=== PATIENT | male | born 1960 | race Caucasian/White ===

== ENCOUNTER 2019-04-17 21:18 | Emergency (ER) | payer MEDICAID ==
[~2019-04-17] VITALS: Ht 175.3 cm; Wt 81.8 kg
[2019-04-17 22:07] LABS: BASOPHILS % (AUTO) 0.3 % (0-1); EOSINOPHILS % (AUTO) 0.5 % (0-6); HEMATOCRIT 33.5 % (42.0-52.0); HEMOGLOBIN 11.5 g/dl (14.0-17.9); LYMPHOCYTES # (AUTO) 2.2 X10'3 (1.1-4.8); LYMPHOCYTES % (AUTO) 22.5 % (21-51); MEAN CORPUSCULAR HEMOGLOBIN 30.3 PG (27.0-31.0); MEAN CORPUSCULAR HGB CONC 34.4 g/dL (33.0-36.5); MEAN CORPUSCULAR VOLUME 87.9 FL (78-98); MEAN PLATELET VOLUME 9.1 FL (7.4-10.4); MONOCYTES # (AUTO) 1.2 X10'3 (0-0.9); NEUTROPHILS # (AUTO) 6.1 X10'3 (1.8-7.7); NEUTROPHILS % (AUTO) 63.7 % (42-75); PLATELET COUNT 186 X10'3 (140-440); RED BLOOD COUNT 3.81 X10'6 (4.70-6.10); RED CELL DISTRIBUTION WIDTH 14.5 % (11.5-14.5); WHITE BLOOD COUNT 9.6 X10'3 (4.5-11.0)
[2019-04-17 22:16] LABS: ALANINE AMINOTRANSFERASE 57 U/L (12-78); ALBUMIN 3.1 G/DL (3.4-5.0); ALBUMIN/GLOBULIN RATIO 0.8 (1.1-1.5); ALKALINE PHOSPHATASE 81 IU/L (46-116); ANION GAP 6 (8-16); ASPARTATE AMINO TRANSFERASE 52 U/L (10-37); BILIRUBIN,TOTAL 0.4 MG/DL (0.1-1.0); BLOOD UREA NITROGEN 13 MG/DL (7-18); CALCIUM 8.2 MG/DL (8.5-10.1); CHLORIDE 104 MMOL/L (99-107); ETHANOL < 0.010 GM/DL (0.0-0.010); GLUCOSE 110 MG/DL (70-104); POTASSIUM 3.5 MMOL/L (3.5-5.1); SODIUM 139 MMOL/L (135-145); TOTAL CARBON DIOXIDE 28.7 MMOL/L (24-32); TOTAL PROTEIN 6.9 G/DL (6.4-8.2); eGFR 76 ML/MIN
[2019-04-18 00:11] LABS: URINE AMPHETAMINE SCREEN NEGATIVE (Neg); URINE BARBITUATE SCREEN NEGATIVE (Neg); URINE BENZODIAZEPINES SCREEN POSITIVE (Neg); URINE CANNABINOID SCREEN POSITIVE (Neg); URINE COCAINE SCREEN NEGATIVE (Neg); URINE METHADONE SCREEN NEGATIVE (Neg); URINE OPIATE SCREEN NEGATIVE (Neg); URINE PHENCYCLIDINE SCREEN NEGATIVE (Neg)
[2019-04-18] MEDS ORDERED: normal saline 1000ml 1,000 ML IV ONE (00:35)
--- NOTE | 2019-04-18 00:55 | NUR ---
Pt resting comfortably. VSS and no signs of distress. Will continue to monitor.
--- NOTE | 2019-04-18 06:56 | NUR ---
Pt denies s/i @ this time. States, "I took my medicine like I was suppose too. I want some food. 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
--- NOTE | 2019-04-18 07:06 | NUR ---
RN spoke with Aviva, sister. She requested to speak with patient. Addendum: 04/18/19 at 0710 by DINH Call transferred to patient's room
--- NOTE | 2019-04-18 07:15 | NUR ---
Note singh in ED - 04/18/19 at 0753 by DINH No stroke alert at this time per JASON Medley, baseline NIH stroke scale completed in case of change in status.
--- NOTE | 2019-04-18 07:25 | NUR ---
patient agitated and argumentative, assisted back to bed by staff
--- NOTE | 2019-04-18 07:37 | NUR ---
Staff again redirected/reoriented patient and assisted him back to bed.
--- NOTE | 2019-04-18 08:30 | NUR ---
RN spoke with Brooke from [facility]. Addendum: 04/18/19 at 0834 by CBLAKE Brooke from [facility] requested lab information and toxicology results. She recommended lab redraw and acetaminophen tox level. RN relayed message to JASON Medley.
[2019-04-18 08:43] VITALS: BP 169/90
[2019-04-18 09:20] LABS: ALANINE AMINOTRANSFERASE 54 U/L (12-78); ALBUMIN 2.8 G/DL (3.4-5.0); ALBUMIN/GLOBULIN RATIO 0.7 (1.1-1.5); ALKALINE PHOSPHATASE 72 IU/L (46-116); ANION GAP 6 (8-16); ASPARTATE AMINO TRANSFERASE 42 U/L (10-37); BILIRUBIN,TOTAL 0.7 MG/DL (0.1-1.0); BLOOD UREA NITROGEN 10 MG/DL (7-18); BUN/CREATININE RATIO 10.4 (5.4-32.0); CALCIUM 8.5 MG/DL (8.5-10.1); CHLORIDE 105 MMOL/L (99-107); CREATININE 0.96 MG/DL (0.60-1.10); GLUCOSE 109 MG/DL (70-104); POTASSIUM 3.4 MMOL/L (3.5-5.1); SODIUM 138 MMOL/L (135-145); TOTAL CARBON DIOXIDE 26.6 MMOL/L (24-32); TOTAL PROTEIN 6.8 G/DL (6.4-8.2); eGFR 80 ML/MIN
[2019-04-18 09:21] LABS: ACETAMINOPHEN < 2.0 UG/ML (10-30)
== END 2019-04-18 10:23 | disposition home or self-care (01) ==
LOC: ER 21:19
DX: T42.4X1A Poisoning by benzodiazepines, accidental (unintentional), initial encounter (principal); T39.1X1A Poisoning by 4-Aminophenol derivatives, accidental (unintentional), initial encounter; Y92.89 Other specified places as the place of occurrence of the external cause
CPT/HCPCS: 36415; 71045; 71250; 80053; 80305; 80320; 80329; 85025; 93005; 96360; 96361; 99285; J7030

== ENCOUNTER 2020-11-16 22:57 | Emergency (ER) | payer MEDICAID ==
[~2020-11-16] VITALS: Ht 167.6 cm; Wt 79.5 kg
[2020-11-16 23:35] LABS: BASOPHILS # (AUTO) 0.1 X10'3 (0-0.2); BASOPHILS % (AUTO) 0.6 % (0-1); EOSINOPHILS # (AUTO) 0.2 X10'3 (0-0.9); EOSINOPHILS % (AUTO) 1.7 % (0-6); HEMATOCRIT 32.9 % (42.0-52.0); HEMOGLOBIN 10.9 g/dl (14.0-17.9); LYMPHOCYTES # (AUTO) 1.4 X10'3 (1.1-4.8); MEAN CORPUSCULAR HEMOGLOBIN 29.2 PG (27.0-31.0); MEAN CORPUSCULAR HGB CONC 33.2 g/dL (33.0-36.5); MEAN CORPUSCULAR VOLUME 88.1 FL (78-98); MEAN PLATELET VOLUME 8.9 FL (7.4-10.4); MONOCYTES # (AUTO) 0.7 X10'3 (0-0.9); MONOCYTES % (AUTO) 6.8 % (2-12); NEUTROPHILS # (AUTO) 8.5 X10'3 (1.8-7.7); NEUTROPHILS % (AUTO) 77.9 % (42-75); PLATELET COUNT 338 X10'3 (140-440); RED BLOOD COUNT 3.74 X10'6 (4.70-6.10)
[2020-11-16 23:50] LABS: ALANINE AMINOTRANSFERASE 32 U/L (12-78); ALBUMIN 3.6 G/DL (3.4-5.0); ALBUMIN/GLOBULIN RATIO 0.9 (1.1-1.5); ALKALINE PHOSPHATASE 109 IU/L (46-116); ANION GAP 9 (8-16); ASPARTATE AMINO TRANSFERASE 23 U/L (10-37); BILIRUBIN,TOTAL 0.3 MG/DL (0.1-1.0); BLOOD UREA NITROGEN 22 MG/DL (7-18); BUN/CREATININE RATIO 17.5 (5.4-32.0); CALCIUM 8.8 MG/DL (8.5-10.1); CHLORIDE 107 MMOL/L (99-107); CREATININE 1.26 MG/DL (0.60-1.10); GLUCOSE 125 MG/DL (70-104); POTASSIUM 3.3 MMOL/L (3.5-5.1); SODIUM 142 MMOL/L (135-145); TOTAL CARBON DIOXIDE 25.7 MMOL/L (24-32); TOTAL PROTEIN 7.7 G/DL (6.4-8.2); eGFR 58 ML/MIN
[2020-11-17 01:25] LABS: ETHANOL < 0.010 GM/DL (0.0-0.010)
[2020-11-17] MEDS ORDERED: niCARDipine-NS 40mg/200ml IVPB 200 ML IV SCH (02:15)
[2020-11-17 02:18] LABS: PARTIAL THROMBOPLASTIN TIME 31 SECONDS (22-32)
[2020-11-17] MEDS ORDERED: NO HOME MEDS (02:19)
[2020-11-17] MEDS ORDERED: morphine 4 MG/ML inj SYRINge IV ONE (03:05)
[2020-11-17] MEDS ORDERED: ondansetron/PF 4mg/2ml inj IV ONE (03:05)
[2020-11-17 04:44] LABS: URINE AMPHETAMINE SCREEN NEGATIVE (Neg); URINE BARBITUATE SCREEN NEGATIVE (Neg); URINE BENZODIAZEPINES SCREEN NEGATIVE (Neg); URINE CANNABINOID SCREEN NEGATIVE (Neg); URINE COCAINE SCREEN NEGATIVE (Neg); URINE METHADONE SCREEN NEGATIVE (Neg); URINE OPIATE SCREEN POSITIVE (Neg); URINE PHENCYCLIDINE SCREEN NEGATIVE (Neg)
--- NOTE | 2020-11-17 04:45 | NUR ---
Reach 18 at bedside, report given to flight medic
[2020-11-17 04:46] VITALS: BP 140/74
== END 2020-11-17 04:53 | disposition short-term general hospital (02) ==
LOC: ER 22:57
DX: S06.2X9A Diffuse traumatic brain injury with loss of consciousness of unspecified duration, initial encounter (principal); Z20.822 Contact with and (suspected) exposure to COVID-19; X58.XXXA Exposure to other specified factors, initial encounter; Y93.89 Activity, other specified; Y92.89 Other specified places as the place of occurrence of the external cause; Y99.8 Other external cause status
CPT/HCPCS: 36415; 70450; 71045; 80053; 80305; 80320; 83735; 83880; 84484; 85025; 85610; 85730; 87635; 93005; 96365; 96366; 96375; 99291; C9803; J2270; J2405

== ENCOUNTER 2020-12-04 17:22 | Emergency (ER) | payer MEDICAID ==
[~2020-12-04] VITALS: Ht 172.7 cm; Wt 71.4 kg
[~2020-12-04 17:22] MED LIST: NO HOME MEDS
[2020-12-04 17:31] VITALS: BP 131/68
== END 2020-12-04 19:42 | disposition left against medical advice (07) ==
LOC: ER 17:22
DX: R58 Hemorrhage, not elsewhere classified (principal); Z53.21 Procedure and treatment not carried out due to patient leaving prior to being seen by health care provider
CPT/HCPCS: 71045; 93005

== ENCOUNTER 2020-12-06 16:42 | Emergency (ER) | payer MEDICAID ==
[~2020-12-06] VITALS: Ht 172.7 cm; Wt 70.5 kg
[2020-12-06 16:55] VITALS: BP 122/65
== END 2020-12-06 17:40 | disposition home or self-care (01) ==
LOC: ER 16:43
DX: T83.091A Other mechanical complication of indwelling urethral catheter, initial encounter (principal); Z88.0 Allergy status to penicillin; Z79.899 Other long term (current) drug therapy
CPT/HCPCS: 51702; 99284

== ENCOUNTER 2020-12-09 15:57 | Inpatient (IN) | payer MEDICAID ==
[~2020-12-09] VITALS: Ht 177.8 cm; Wt 61.8 kg
[2020-12-09] MEDS ORDERED: normal saline 1000ML IV soln IV ONE (16:25)
[2020-12-09 16:59] LABS: BASOPHILS # (AUTO) 0.1 X10'3 (0-0.2); BASOPHILS % (AUTO) 0.6 % (0-1); EOSINOPHILS # (AUTO) 0.2 X10'3 (0-0.9); EOSINOPHILS % (AUTO) 1.2 % (0-6); HEMATOCRIT 27.4 % (42.0-52.0); HEMOGLOBIN 9.2 g/dl (14.0-17.9); LYMPHOCYTES # (AUTO) 1.4 X10'3 (1.1-4.8); LYMPHOCYTES % (AUTO) 10.4 % (21-51); MEAN CORPUSCULAR HEMOGLOBIN 29.8 PG (27.0-31.0); MEAN CORPUSCULAR HGB CONC 33.6 g/dL (33.0-36.5); MEAN CORPUSCULAR VOLUME 88.7 FL (78-98); MEAN PLATELET VOLUME 8.7 FL (7.4-10.4); MONOCYTES # (AUTO) 0.8 X10'3 (0-0.9); MONOCYTES % (AUTO) 5.8 % (2-12); NEUTROPHILS # (AUTO) 10.9 X10'3 (1.8-7.7); PLATELET COUNT 364 X10'3 (140-440); RED BLOOD COUNT 3.09 X10'6 (4.70-6.10); RED CELL DISTRIBUTION WIDTH 16.5 % (11.5-14.5); WHITE BLOOD COUNT 13.3 X10'3 (4.5-11.0)
[2020-12-09 17:08] LABS: PARTIAL THROMBOPLASTIN TIME 28 SECONDS (22-32)
[2020-12-09 17:14] LABS: ALANINE AMINOTRANSFERASE 45 U/L (12-78); ALBUMIN 3.3 G/DL (3.4-5.0); ALBUMIN/GLOBULIN RATIO 0.8 (1.1-1.5); ALKALINE PHOSPHATASE 108 IU/L (46-116); ANION GAP 14 (8-16); ASPARTATE AMINO TRANSFERASE 24 U/L (10-37); BILIRUBIN,TOTAL 0.6 MG/DL (0.1-1.0); BLOOD UREA NITROGEN 24 MG/DL (7-18); BUN/CREATININE RATIO 11.9 (5.4-32.0); CALCIUM 9.1 MG/DL (8.5-10.1); CHLORIDE 103 MMOL/L (99-107); CREATININE 2.01 MG/DL (0.60-1.10); GLUCOSE 148 MG/DL (70-104); POTASSIUM 4.1 MMOL/L (3.5-5.1); SODIUM 137 MMOL/L (135-145); TOTAL CARBON DIOXIDE 19.9 MMOL/L (24-32); TOTAL PROTEIN 7.3 G/DL (6.4-8.2); eGFR 34 ML/MIN
[2020-12-09 17:21] LABS: MAGNESIUM 1.7 MG/DL (1.5-2.4)
[2020-12-09] MEDS ORDERED: CefTRIAXone/D5W-Rocephin 1gm 50 ML IV ONE (19:35)
[2020-12-09 20:24] LABS: CLARITY,URINE CLOUDY (Clear); COLOR,URINE YELLOW (Yellow); UA COLLECTION TYPE FOLEY CATH
[2020-12-09 20:25] LABS: GLUCOSE, URINE NEGATIVE (Neg); KETONES,URINE NEGATIVE (Neg); LEUKOCYTE ESTERASE ,URINE MODERATE (Neg); NITRITES, URINE POSITIVE (Neg); OCCULT BLOOD,URINE LARGE (Neg); PROTEIN,URINE TRACE mg/dl (Neg); UROBILINOGEN,URINE 0.2 E.U/dL (0.2-1.0)
[2020-12-09 20:40] LABS: BACTERIA,URINE 3+ /HPF (Neg); SQUAMOUS EPITHELIAL CELL,UR FEW /LPF (FEW); WBC,URINE TNTC /HPF (0-4)
[2020-12-09] MEDS ORDERED: HYDROcodone/acetaminophen 10/325mg tab PO PRN (21:00)
[2020-12-09] MEDS ORDERED: bisacodyl 10mg suppository rectal RC PRN (21:00)
[2020-12-09] MEDS ORDERED: ondansetron 4mg rapidly disintigrating tab PO PRN (21:00)
[2020-12-09] MEDS ORDERED: diphenhydrAMINE 50 mg/ml inj IV PRN (21:00)
[2020-12-09] MEDS ORDERED: mag hydrox/Alum hydrox/simeth 30ml oral suspension PO PRN (21:00)
[2020-12-09] MEDS ORDERED: temazepam 15mg capsule PO PRN (21:00)
[2020-12-09] MEDS ORDERED: diphenhydrAMINE 25mg capsule PO PRN (21:00)
[2020-12-09] MEDS ORDERED: magnesium hydroxide 30ml (MOM) UD suspension PO PRN (21:00)
[2020-12-09] MEDS ORDERED: morphine 2 MG/ML inj. syringe IV PRN ×2 (21:00)
[2020-12-09] MEDS ORDERED: acetaminophen 650mg rectal suppository RC PRN (21:00)
[2020-12-09] MEDS ORDERED: ondansetron/PF 4mg/2ml inj IV PRN (21:00)
[2020-12-09] MEDS ORDERED: acetaminophen 325mg tablet PO PRN ×2 (21:00)
[2020-12-09] MEDS: normal saline 1000ml 1,000 ML IV SCH (21:30)
[2020-12-09 21:43] LABS: HEMOGLOBIN A1C 6.1 % (4.5-6.2)
[2020-12-09 21:51] LABS: CREATINE KINASE 34 U/L (39-308); LIPASE 82 U/L (73-393); PHOSPHORUS 4.6 MG/DL (2.3-4.5)
[2020-12-09] MEDS ORDERED: LIDOcaine 2% 10ml TOPICAL JELLY (Urojet) TP ONE (21:55)
[2020-12-09 22:28] LABS: D-DIMER 1.67 MG/L FEU (0-0.50); PARTIAL THROMBOPLASTIN TIME 27 SECONDS (22-32)
[2020-12-09 23:00] VITALS: BP 135/64
[2020-12-10 02:00] VITALS: BP 131/69
--- NOTE | 2020-12-10 05:26 | NUR ---
Received patient to room 3026B, patient is alert and oriented in no apparent acute distress, denies pain or discomfort at this time oriented to room , call light placed within reach, bed in lower position and locked will continue to monitor and report changes
[2020-12-10 06:00] VITALS: BP 125/69
[2020-12-10 06:23] LABS: BASOPHILS # (AUTO) 0.1 X10'3 (0-0.2); BASOPHILS % (AUTO) 0.9 % (0-1); EOSINOPHILS # (AUTO) 0.3 X10'3 (0-0.9); EOSINOPHILS % (AUTO) 2.8 % (0-6); HEMATOCRIT 25.7 % (42.0-52.0); HEMOGLOBIN 8.6 g/dl (14.0-17.9); LYMPHOCYTES # (AUTO) 2.7 X10'3 (1.1-4.8); LYMPHOCYTES % (AUTO) 24.5 % (21-51); MEAN CORPUSCULAR HEMOGLOBIN 29.7 PG (27.0-31.0); MEAN CORPUSCULAR HGB CONC 33.6 g/dL (33.0-36.5); MEAN CORPUSCULAR VOLUME 88.3 FL (78-98); MONOCYTES % (AUTO) 8.9 % (2-12); NEUTROPHILS # (AUTO) 6.9 X10'3 (1.8-7.7); NEUTROPHILS % (AUTO) 62.9 % (42-75); PLATELET COUNT 324 X10'3 (140-440); RED BLOOD COUNT 2.91 X10'6 (4.70-6.10); RED CELL DISTRIBUTION WIDTH 16.5 % (11.5-14.5)
--- NOTE | 2020-12-10 06:31 | NUR ---
Problems reprioritized. Patient report given, questions answered & plan of care reviewed with Nuria GRIGGS .
[2020-12-10 06:38] LABS: ALANINE AMINOTRANSFERASE 35 U/L (12-78); ALBUMIN 2.7 G/DL (3.4-5.0); ALBUMIN/GLOBULIN RATIO 0.7 (1.1-1.5); ALKALINE PHOSPHATASE 97 IU/L (46-116); ANION GAP 11 (8-16); ASPARTATE AMINO TRANSFERASE 15 U/L (10-37); BILIRUBIN,TOTAL 0.4 MG/DL (0.1-1.0); BLOOD UREA NITROGEN 25 MG/DL (7-18); CALCIUM 8.8 MG/DL (8.5-10.1); CHLORIDE 109 MMOL/L (99-107); CREATININE 1.78 MG/DL (0.60-1.10); GLUCOSE 109 MG/DL (70-104); POTASSIUM 4.2 MMOL/L (3.5-5.1); SODIUM 142 MMOL/L (135-145); TOTAL CARBON DIOXIDE 21.7 MMOL/L (24-32); TOTAL PROTEIN 6.4 G/DL (6.4-8.2); eGFR 39 ML/MIN
[2020-12-10 06:40] LABS: CHOL/HDL RATIO 5.5 (0.00-4.99); CHOLESTEROL 160 MG/DL (0-200); HDL CHOLESTEROL 29 MG/DL (35-60); LDL CHOLESTEROL 99 MG/DL (50-100); TRIGLYCERIDES 138 MG/DL (20-135)
[2020-12-10] MEDS: normal saline 1000ml 1,000 ML IV SCH ×3 (07:00→18:31)
[2020-12-10] MEDS ORDERED: dexamethasone inj 6 MG in normal saline 50ml IV soln 50 ML IV SCH (08:00)
[2020-12-10] MEDS: pantoprazole 40mg Tablet.DR PO SCH (08:05)
[2020-12-10] MEDS: docusate sod 100mg capsule PO SCH ×2 (08:05→19:56)
[2020-12-10] MEDS: heparin, porcine 5000 units/ml vial SQ SCH ×2 (08:06→19:56)
[2020-12-10 11:00] VITALS: BP 146/59
--- NOTE | 2020-12-10 12:56 | NUR ---
Paged Dr Salinas PAGER ID: [phone] MESSAGE: Rm [id number] aHmzah Salomon. per CT, confirming order with contrast due to GFR 39. Please advise. thanks. Georgie [phone]
[2020-12-10] MEDS: levoFLOXACIN-Levaquin 500mg/D5 100 ML IV SCH (13:05)
[2020-12-10 15:00] VITALS: BP 143/77
--- NOTE | 2020-12-10 15:56 | NUR ---
Per Dr Salinas. Hold off on MRI with and without contrast until tomorrow 12/11/20. MRI screening form in chart. Called Bernard with MRI and advised above.
[2020-12-10] MEDS ORDERED: AMLO-708 PO (16:55)
[2020-12-10] MEDS ORDERED: FLO0.4C PO (16:55)
[2020-12-10] MEDS ORDERED: ATOR20TA66 PO (16:55)
[2020-12-10] MEDS ORDERED: LABE300T2 PO (16:55)
[2020-12-10] MEDS ORDERED: LISI10TA27 PO (16:55)
[2020-12-10 18:00] VITALS: BP 111/73
--- NOTE | 2020-12-10 18:37 | NUR ---
Problems reprioritized. Patient report given, questions answered & plan of care reviewed with ANSON Hankins.
[2020-12-10 22:00] VITALS: BP 147/69
[2020-12-11 02:00] VITALS: BP 158/77
[2020-12-11 06:00] VITALS: BP 159/67
--- NOTE | 2020-12-11 06:20 | NUR ---
Patient in room PCU 3026. I have received report from ANSON Hankins and had the opportunity to ask questions and assume patient care.
--- NOTE | 2020-12-11 06:24 | NUR ---
Problems reprioritized. Patient report given, questions answered & plan of care reviewed with Georgie GRIGGS .
--- NOTE | 2020-12-11 07:00 | NUR ---
Pt is refusing tele and pulled out his PIV. He is not happy and continuous to want to "just go home".
[2020-12-11 07:38] LABS: BASOPHILS % (AUTO) 0.3 % (0-1); EOSINOPHILS % (AUTO) 0.1 % (0-6); HEMATOCRIT 27.6 % (42.0-52.0); HEMOGLOBIN 9.4 g/dl (14.0-17.9); LYMPHOCYTES # (AUTO) 1.8 X10'3 (1.1-4.8); MEAN CORPUSCULAR HEMOGLOBIN 30.1 PG (27.0-31.0); MEAN CORPUSCULAR HGB CONC 34.2 g/dL (33.0-36.5); MEAN PLATELET VOLUME 8.5 FL (7.4-10.4); MONOCYTES # (AUTO) 0.7 X10'3 (0-0.9); MONOCYTES % (AUTO) 8.1 % (2-12); NEUTROPHILS # (AUTO) 6.5 X10'3 (1.8-7.7); NEUTROPHILS % (AUTO) 71.5 % (42-75); PLATELET COUNT 325 X10'3 (140-440); RED BLOOD COUNT 3.14 X10'6 (4.70-6.10); RED CELL DISTRIBUTION WIDTH 16.4 % (11.5-14.5); WHITE BLOOD COUNT 9.1 X10'3 (4.5-11.0)
[2020-12-11] MEDS: HYDROcodone/acetaminophen 5mg/325mg tablet PO PRN ×3 (07:39→19:18)
[2020-12-11] MEDS: docusate sod 100mg capsule PO SCH ×2 (07:39→19:16)
[2020-12-11] MEDS: pantoprazole 40mg Tablet.DR PO SCH (07:39)
[2020-12-11] MEDS: heparin, porcine 5000 units/ml vial SQ SCH ×2 (07:40→19:17)
[2020-12-11 08:01] LABS: ALANINE AMINOTRANSFERASE 36 U/L (12-78); ALBUMIN 3.1 G/DL (3.4-5.0); ALBUMIN/GLOBULIN RATIO 0.7 (1.1-1.5); ALKALINE PHOSPHATASE 102 IU/L (46-116); ANION GAP 12 (8-16); ASPARTATE AMINO TRANSFERASE 13 U/L (10-37); BILIRUBIN,TOTAL 0.3 MG/DL (0.1-1.0); BLOOD UREA NITROGEN 22 MG/DL (7-18); BUN/CREATININE RATIO 13.7 (5.4-32.0); CALCIUM 9.2 MG/DL (8.5-10.1); CHLORIDE 106 MMOL/L (99-107); CREATININE 1.61 MG/DL (0.60-1.10); GLUCOSE 129 MG/DL (70-104); POTASSIUM 3.8 MMOL/L (3.5-5.1); SODIUM 139 MMOL/L (135-145); TOTAL CARBON DIOXIDE 20.7 MMOL/L (24-32); TOTAL PROTEIN 7.3 G/DL (6.4-8.2); eGFR 44 ML/MIN
[2020-12-11] MEDS: levoFLOXACIN-Levaquin 500mg/D5 100 ML IV SCH (09:06)
[2020-12-11] MEDS: normal saline 1000ml 1,000 ML IV SCH ×2 (09:07→19:24)
[2020-12-11 11:00] VITALS: BP 148/45
--- NOTE | 2020-12-11 11:05 | NUR ---
Spoke with Dr Salinas: UA cx already growing gram neg rods. They will finalize complete results before the end of the day. Are we ready for MRI with or without contrast?. Dr Salinas advised that she will get back with me today.
--- NOTE | 2020-12-11 12:51 | NUR ---
Pt woke up from sleep crying. He states he just wants to go home. He misses his sister, Aviva and his girlfriend. Called sister Aviva. Spoke with her and she was ready to be transferred and the phone disconnected. Tried calling back numerous times and the phone goes straight to voicemail. Will continue to get ahold of sister. Spoke with Dr Salinas - she will call me back re: pt
--- NOTE | 2020-12-11 13:45 | NUR ---
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 He has been constantly using it for the last 2-3 years, either smoking or snorting it. He abruptly stopped 2-3 months ago. Since quitting, pt has become very emotional. It happens at home alot." Pt states he wants to go home. We have educated him multiple times on why he is here. He gets very emotional. Called sister, Aviva to speak to him and help calm him down. Will continue to monitor.
--- NOTE | 2020-12-11 14:08 | NUR ---
Dr Salinas PAGER ID: [phone] MESSAGE: Room 3026B. Hamzah Salomon. Pt is crying and wants to go home. He is on the phone with his sister who advised that pt has a hx of meth use since 2 months ago and became more emotionally unstable since quitting. NAE. Thanks, Georgie [phone]
--- NOTE | 2020-12-11 14:11 | NUR ---
Paged PT Room 1797O. Hamzah Salomon. Per Please see pt as PT pending possible D/C. Thanks
[2020-12-11 15:00] VITALS: BP 155/50
--- NOTE | 2020-12-11 16:25 | NUR ---
Per phone call with Dr Rita Garrett to d/c F/C and put on bladder scan protocol. D/c still pending UA cultures and additional assessment.
--- NOTE | 2020-12-11 16:30 | NUR ---
Paged Dr Salinas PAGER ID: [phone] MESSAGE: Room 3026B. Hamzah Salomon. Cultures will not be complete until tomorrow but they just updated ENTEROBACTER CLOACAE COMPLEX, ENTEROCOCCUS FAECIUM. Thanks, Georgie [phone]
--- NOTE | 2020-12-11 16:49 | NUR ---
Paged Dr Salinas PAGER ID: [phone] MESSAGE: Room 3024K. Hamzah Salomon. Pt has chronic F/C from [facility] which was present on admission. I will leave F/C in. Thanks, Georgie [phone]
[2020-12-11 18:00] VITALS: BP 159/73
--- NOTE | 2020-12-11 18:26 | NUR ---
Problems reprioritized. Patient report given, questions answered & plan of care reviewed with ANSON Eubanks.
[2020-12-11 22:00] VITALS: BP 130/76
--- NOTE | 2020-12-12 01:44 | NUR ---
Paged regarding patient urine culture results. No new orders at this time.
[2020-12-12 02:00] VITALS: BP 134/71
[2020-12-12] MEDS: normal saline 1000ml 1,000 ML IV SCH (04:36)
--- NOTE | 2020-12-12 05:24 | NUR ---
Patient in bed resting at this time. No signs of distress or discomfort noted at this time. Catheter intact and draining. VSS throughout shift. Call light placed within reach of patient. Instructed to call for assistance. Assessment and vital signs documented in interventions.
[2020-12-12 06:00] VITALS: BP 126/70
--- NOTE | 2020-12-12 06:10 | NUR ---
Patient in room PCU 3026. I have received report from ANSON Eubanks and had the opportunity to ask questions and assume patient care.
[2020-12-12 07:13] LABS: BASOPHILS # (AUTO) 0.1 X10'3 (0-0.2); BASOPHILS % (AUTO) 0.6 % (0-1); EOSINOPHILS # (AUTO) 0.3 X10'3 (0-0.9); HEMATOCRIT 28.5 % (42.0-52.0); HEMOGLOBIN 9.6 g/dl (14.0-17.9); LYMPHOCYTES # (AUTO) 3.3 X10'3 (1.1-4.8); LYMPHOCYTES % (AUTO) 37.8 % (21-51); MEAN CORPUSCULAR HEMOGLOBIN 29.7 PG (27.0-31.0); MEAN CORPUSCULAR HGB CONC 33.6 g/dL (33.0-36.5); MEAN CORPUSCULAR VOLUME 88.3 FL (78-98); MEAN PLATELET VOLUME 8.8 FL (7.4-10.4); MONOCYTES # (AUTO) 0.7 X10'3 (0-0.9); NEUTROPHILS # (AUTO) 4.5 X10'3 (1.8-7.7); NEUTROPHILS % (AUTO) 50.6 % (42-75); PLATELET COUNT 326 X10'3 (140-440); RED BLOOD COUNT 3.23 X10'6 (4.70-6.10); RED CELL DISTRIBUTION WIDTH 16.7 % (11.5-14.5); WHITE BLOOD COUNT 8.8 X10'3 (4.5-11.0)
--- NOTE | 2020-12-12 07:17 | NUR ---
Paged Dr Salinas PAGER ID: [phone] MESSAGE: Room 3020I. Hamzah Salomon. INTERNET MARKETING COORDINATOR complete - VRE from F/C. Thanks, Georgie [phone]
[2020-12-12 07:24] LABS: BILIRUBIN,TOTAL 0.2 MG/DL (0.1-1.0); BLOOD UREA NITROGEN 22 MG/DL (7-18); BUN/CREATININE RATIO 14.4 (5.4-32.0); CHLORIDE 106 MMOL/L (99-107); CREATININE 1.53 MG/DL (0.60-1.10); GLUCOSE 96 MG/DL (70-104); POTASSIUM 3.8 MMOL/L (3.5-5.1); SODIUM 141 MMOL/L (135-145); eGFR 47 ML/MIN
[2020-12-12 07:25] LABS: ALANINE AMINOTRANSFERASE 41 U/L (12-78); ALBUMIN 3.1 G/DL (3.4-5.0); ALBUMIN/GLOBULIN RATIO 0.8 (1.1-1.5); ALKALINE PHOSPHATASE 92 IU/L (46-116); ANION GAP 11 (8-16); ASPARTATE AMINO TRANSFERASE 21 U/L (10-37); TOTAL CARBON DIOXIDE 23.7 MMOL/L (24-32)
[2020-12-12] MEDS: pantoprazole 40mg Tablet.DR PO SCH (07:42)
[2020-12-12] MEDS: levoFLOXACIN-Levaquin 500mg/D5 100 ML IV SCH (07:42)
[2020-12-12] MEDS: docusate sod 100mg capsule PO SCH (07:42)
[2020-12-12] MEDS: HYDROcodone/acetaminophen 5mg/325mg tablet PO PRN ×2 (07:42→11:50)
[2020-12-12] MEDS: heparin, porcine 5000 units/ml vial SQ SCH (08:00)
[2020-12-12] MEDS ORDERED: LEVO500T90 PO (10:26)
[2020-12-12] MEDS ORDERED: DEC4T PO (10:46)
[2020-12-12 11:00] VITALS: BP 145/67
--- NOTE | 2020-12-12 14:50 | NUR ---
Paged Dr Salinas PAGER ID: [phone] MESSAGE: Room 3026B. Hamzah Salomon. MRI results are in. Please advise if ok to go home. Thanks, Georgie [phone]
[2020-12-12 15:00] VITALS: BP 163/78
--- NOTE | 2020-12-12 16:55 | NUR ---
Pt stable for D/C per MD orders. Pt stable for D/C. All D/C ppwk was reviewed with patient and patient verbalized understanding. PIV was removed and patient tolerated well. Tele box 16 was removed and handed to [email or web address]. New RX was faxed to [facility] and I called to confirm they have it. Stressed the importance re: follow up with PCP and specialist. Education on hemorrhagic stroke, bradycardia, and UTI was reviewed in detail. Pt feels stable for D/C and does not have any questions, comments, or concerns at this time. All personal belongings were sent with patient. Pt was wheeled down in W/C by nursing staff to private vehicle where family was waiting.
== END 2020-12-12 17:00 | disposition home or self-care (01) | DRG 720 ==
LOC: ER 15:58 → ED HOLD 21:02 → PCU 3S 23:05
PROVIDERS: ADMIT Family Medicine; ATTEND Internal Medicine
DX: A41.9 Sepsis, unspecified organism (principal); N17.0 Acute kidney failure with tubular necrosis; I61.1 Nontraumatic intracerebral hemorrhage in hemisphere, cortical; I50.33 Acute on chronic diastolic (congestive) heart failure; E87.2 Acidosis; D63.8 Anemia in other chronic diseases classified elsewhere; I95.9 Hypotension, unspecified; I11.0 Hypertensive heart disease with heart failure; E86.0 Dehydration; E86.1 Hypovolemia; R00.1 Bradycardia, unspecified; N39.0 Urinary tract infection, site not specified; Z16.23 Resistance to quinolones and fluoroquinolones; Z86.73 Personal history of transient ischemic attack (TIA), and cerebral infarction without residual deficits; Z88.0 Allergy status to penicillin
CPT/HCPCS: 36415; 70450; 70551; 71045; 80053; 80061; 81001; 82550; 83036; 83605; 83690; 83735; 83880; 84100; 84145; 84443; 84484; 85025; 85379; 85610; 85730; 87040; 87077; 87088; 87186; 93005; 93306; 96361; 96365; 97116; 97161; 97530; 99285; G0378; J0696; J1100; J1644; J1956; J7030